=== PATIENT | male | born 1985 | race Caucasian/White ===

== ENCOUNTER 2017-04-08 17:55 | Emergency (ER) | payer BC ==
[~2017-04-08] VITALS: Ht 157.4 cm; Wt 70.3 kg
[2017-04-08] MEDS ORDERED: OMNICEF300 MG PO (20:19)
== END 2017-04-08 20:23 | disposition home or self-care (01) ==
LOC: ED 17:55
DX: J06.9 Acute upper respiratory infection, unspecified (principal); H66.91 Otitis media, unspecified, right ear

== ENCOUNTER 2018-04-20 18:43 | Emergency (ER) | payer BC ==
[~2018-04-20] VITALS: Wt 70.3 kg
[~2018-04-20 18:43] MED LIST: OMNICEF300 MG PO
[2018-04-20] MEDS ORDERED: SEPTDS PO (18:57)
[2018-04-20] MEDS ORDERED: CEPHALEXIN500 M1 PO (18:57)
[2018-05-18] MEDS ORDERED: SEPTDS PO (09:57)
[2018-05-18] MEDS ORDERED: KEFLEX500 M1 PO (09:57)
== END 2018-04-20 19:05 | disposition home or self-care (01) ==
LOC: ED 18:43
DX: L02.214 Cutaneous abscess of groin (principal); F17.200 Nicotine dependence, unspecified, uncomplicated

== ENCOUNTER → 2018-05-18 | Day surgery (SDC) | payer BC ==
[2018-05-16 10:16] LABS: BASO # 0.1 10*3/uL (0.0-0.1); BASO % 0.8 % (0.0-1.0); EOS # 0.2 10*3/uL (0.0-0.4); EOS % 1.8 % (1.0-4.0); HEMATOCRIT 43.8 % (42.0-52.0); HEMOGLOBIN 14.2 g/dl (14.0-18.0); LYMPH # 2.4 10*3/uL (1.3-4.4); LYMPH % 28.1 % (27.0-41.0); MEAN CELL VOLUME 81.4 fl (80.0-94.0); MEAN CORPUSCULAR HGB 26.4 pg (27.0-31.0); MEAN CORPUSCULAR HGB CONC 32.4 g/dl (33.0-37.0); MEAN PLATELET VOLUME 8.4 fl (9.6-12.3); MONO # 0.6 10*3/uL (0.1-1.0); MONO % 7.4 % (3.0-9.0); NEUT # 5.2 10*3/uL (2.3-7.9); NEUT % 61.1 % (47.0-73.0); PLATELET COUNT AUTOMATED 319 10*3/uL (130-400); RED BLOOD COUNT 5.38 10*6/uL (4.50-5.90); RED CELL DISTRI WIDTH 12.6 % (0-14.5); WHITE BLOOD COUNT 8.5 10*3/uL (4.8-10.8)
[2018-05-16 10:41] LABS: ALBUMIN 3.7 gm/dl (3.1-4.5); ALKALINE PHOSPHATASE 81 U/L (45-117); BUN 12 mg/dl (7-24); CHLORIDE 105 mmol/L (98-107); CREATININE 1.15 mg/dL (0.70-1.30); LDH 141 U/L (87-241); POTASSIUM 4.4 mmol/L (3.5-5.1); SGOT/AST 19 IU/L (3-35); SGPT/ALT 38 U/L (12-78); SODIUM 140 mmol/L (136-145); TOTAL PROTEIN 8.2 gm/dL (6.4-8.2)
[~2018-05-18] VITALS: Ht 157.4 cm; Wt 70.3 kg
[~2018-05-18] MED LIST changes: +CEPHALEXIN500 M1 PO; +KEFLEX500 M1 PO; +SEPTDS PO
[2018-05-18 07:21] VITALS: BP 131/68
--- NOTE | 2018-05-18 09:17 | NUR ---
DR DURGA MORENO WITH DR GERARDO RETO: FROZEN SECTION.
[2018-05-18 09:35] VITALS: BP 118/62
[2018-05-18 09:50] VITALS: BP 124/66
[2018-05-18 10:05] VITALS: BP 122/79
[2018-05-18 10:20] VITALS: BP 130/67
[2018-05-18 10:35] VITALS: BP 128/68
[2018-05-19 15:06] LABS: ACID FAST SPEC PROCESSING Tissue Grinding (.)
[2018-07-01 10:06] LABS: ACID FAST CULTURE Negative (.)
== END | disposition home or self-care (01) ==
LOC: SDC 05-07 12:30
DX: L02.214 Cutaneous abscess of groin (principal); R59.9 Enlarged lymph nodes, unspecified; Z98.890 Other specified postprocedural states; Z84.1 Family history of disorders of kidney and ureter

== ENCOUNTER 2019-04-12 14:18 | Emergency (ER) | payer BC ==
[~2019-04-12] VITALS: Ht 157.4 cm; Wt 74.8 kg
[2019-04-12] MEDS ORDERED: CEFADROXIL500 M1 PO (15:13)
== END 2019-04-12 15:26 | disposition home or self-care (01) ==
LOC: ED 14:18
DX: L03.011 Cellulitis of right finger (principal)

== ENCOUNTER 2019-08-31 21:12 | Emergency (ER) | payer BC ==
[~2019-08-31] VITALS: Ht 157.4 cm; Wt 70.3 kg
[~2019-08-31 21:12] MED LIST changes: +CEFADROXIL500 M1 PO
== END 2019-08-31 22:15 | disposition home or self-care (01) ==
LOC: ED 21:12
DX: H10.89 Other conjunctivitis (principal); Z79.899 Other long term (current) drug therapy

== ENCOUNTER 2022-07-14 19:29 | Emergency (ER) | payer BC ==
[~2022-07-14] VITALS: Ht 157.4 cm; Wt 77.1 kg
== END 2022-07-14 20:48 | disposition home or self-care (01) ==
LOC: ED 19:29
DX: J06.9 Acute upper respiratory infection, unspecified (principal); H57.89 Other specified disorders of eye and adnexa; Z98.890 Other specified postprocedural states; Z20.822 Contact with and (suspected) exposure to COVID-19

== ENCOUNTER 2023-05-14 18:12 | Emergency (ER) | payer BC ==
[~2023-05-14] VITALS: Wt 72.6 kg
[2023-05-14] MEDS ORDERED: Ciprofloxacin Hydrochloride 0.3% OPHTHLAMIC BOTTLE OT ONE (19:20)
== END 2023-05-14 19:32 | disposition home or self-care (01) ==
LOC: ED 18:12
DX: H72.92 Unspecified perforation of tympanic membrane, left ear (principal); Z98.890 Other specified postprocedural states